=== PATIENT | female | born 1965 | race Caucasian/White ===

== ENCOUNTER 2019-01-15 09:40 | Inpatient (IN) | payer OTHER ==
[~2019-01-15] VITALS: Ht 152.4 cm; Wt 66.2 kg
[~2019-01-15 09:40] MED LIST: CLONIDINE HCL0.2 M2 PO; DIOVAN 80 MG TA80 M1 PO; HORMONES; LAMICTAL100 MG PO; LEVAQUIN 250 M250 MG PO; MOBIC7.5 MG PO; NEURONTIN600 MG PO; NORCO 5-325 TA1 EACH PO; PERCOCET 7.5-31 EACH PO; PREMPHASE 0.621 EAC1 PO; PREVACID 30MG C30 M1 PO; PROTONIX40 MG PO; PROZAC10 M1 PO; PROZAC10 MG PO; PROZAC40 MG PO; SANCTURA; SYNTHROID137 MCG PO; XANAX 0.5 MG0.5 M1 PO; ZEBUTAL; ZOFRAN ODT4 MG DISSOLVE; ZOFRAN ODT4 MG SUBLING
[2019-01-15 09:48] VITALS: BP 137/81
[2019-01-15] MEDS ORDERED: SYNTHROID100 MC1 PO (09:51)
[2019-01-15] MEDS ORDERED: ACCUNEB SO1.25 MG/1 INH (09:51)
[2019-01-15 10:14] LABS: HEMATOCRIT 44.3 % (37.0-47.0); HEMOGLOBIN 15.2 gm/dL (12.0-15.0); MCH 30.5 pg (26.0-34.0); MCHC 34.3 g/dL (28.0-37.0); MPV 7.4 fl. (7.2-11.1); RBC 4.97 mil/uL (4.20-5.00); RDW-CV 13.3 % (10.5-14.5); WBC 8.2 thou/uL (4.0-11.0)
[2019-01-15 10:25] LABS: ANION GAP 21 mmol/L (7-16); BUN 23 mg/dL (7-18); CALCIUM 8.7 mg/dL (8.5-10.1); CHLORIDE 99 mmol/L (98-107); CO2 21 mmol/L (21-32); CREATININE 0.9 mg/dL (0.6-1.3); GLUCOSE 83 mg/dL (70-99); POTASSIUM 3.7 mmol/L (3.5-5.1); SODIUM 141 mmol/L (136-145)
[2019-01-15 10:34] LABS: ALBUMIN 4.4 g/dL (3.4-5.0); ALKALINE PHOSPHATASE 82 U/L (46-116); LIPASE 131 U/L (73-393); MAGNESIUM 1.6 mg/dL (1.8-2.4); SGOT 41 U/L (15-37); SGPT 27 U/L (30-65); TROPONIN-I LEVEL <0.06 ng/mL (<0.06)
--- NOTE | 2019-01-15 14:45 | NUR ---
PT SITTING UP IN BED, GIVEN TURKEY SANDWICH AND SODA PER REQUEST.
[2019-01-15 15:06] VITALS: BP 120/78
[2019-01-15 15:44] VITALS: BP 117/69
--- NOTE | 2019-01-15 16:11 | EKG ---
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 : 1965 Requested By: Chris Bronson Order Number: [id number] MD: Sanju Hargrove Measurements Intervals [place] Rate: 93 P: 66 NE: 139 QRS: 13 QRSD: 106 T: 42 QT: 437 QTc: 544 Interpretive Statements Sinus rhythm Probable left atrial enlargement Prolonged QT interval Compared to ECG 07/30/2017 07:54:49 Prolonged QT interval now present Electronically Signed On 01-15-2019 16:11:01 CDT by Sanju Hargrove [email or web address] <ELECTRONICALLY SIGNED> By: Sanju Hargrove MD, [facility] 01/15/19 1611 1010 1010 Sanju Hargrove MD, [facility] /EPI
--- NOTE | 2019-01-15 16:14 | EKG ---
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
[2019-01-15 17:32] LABS: ABSOLUTE LYMPHOCYTES 1.2 thou/uL (0.8-5.3); ABSOLUTE MONOCYTES 0.7 thou/uL (0.0-1.2); ABSOLUTE NEUTROPHILS 4.8 thou/uL (1.6-8.1); BASOPHILS 0.7 %; EOSINOPHILS 0.2 %; HEMATOCRIT 38.5 % (37.0-47.0); LYMPHOCYTES 18.3 %; MCH 30.4 pg (26.0-34.0); MCHC 34.3 g/dL (28.0-37.0); MCV 88.6 fL (80.0-100.0); MONOCYTES 9.8 %; MPV 7.3 fl. (7.2-11.1); NUCLEATED RBCS 0 /100WBC; PLATELET COUNT* 315 thou/uL (150-400); RBC 4.34 mil/uL (4.20-5.00); RDW-CV 13.4 % (10.5-14.5); WBC 6.7 thou/uL (4.0-11.0)
[2019-01-15 17:33] LABS: HEMOGLOBIN 13.2 gm/dL (12.0-15.0)
[2019-01-15 17:41] LABS: INR 1.1; PROTIME 11.1 Seconds (9.20-11.50)
[2019-01-15 17:47] LABS: ALBUMIN 3.5 g/dL (3.4-5.0); CALCIUM 7.8 mg/dL (8.5-10.1); CREATININE 1.1 mg/dL (0.6-1.3); MAGNESIUM 1.7 mg/dL (1.8-2.4); PHOSPHORUS* 2.4 mg/dL (2.5-4.9); POTASSIUM 3.9 mmol/L (3.5-5.1); TOTAL PROTEIN 6.6 g/dL (6.4-8.2)
--- NOTE | 2019-01-15 18:42 | NUR ---
PT ADMITTED ON TELE THIS AFTERNOON AT 1530 REPORT RECEIVED FROM ER NURSE. 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 ON RA . NO PAIN. COMPLAINS OF NAUSEA AND ANXIETY. ATIVAN GIVEN ORDERED. ZOFRAN NOT GIVEN , AWAITING DR'S ORDER. FALL PRECAUTION IN PLACE. SEIZURE PRECAUTION IN PLACE. CIWA 16. ATIVCAN ON OCT GIVEN ONCE NEEDED. PT ATE SANDWICH. DIET ORDERED ON [employer]. MAGNESIUM WAS REPLACED IN ER BUT AWAITNG FOR ELECTROLYTE ORDERS. UA COLLECTION PENDING. IV FLUID D5 NS INFUSING AT 100 PER HOUR. WILL CONTINUE TO MONITOR PT
[2019-01-15] MEDS ORDERED: BREO ELLIPTA 21 EACH INH (19:06)
[2019-01-15] MEDS ORDERED: SPIRIVA INH (19:07)
[2019-01-15] MEDS ORDERED: LAMICTAL XR200 MG PO (19:07)
[2019-01-15] MEDS ORDERED: PROZAC20 MG PO (19:07)
[2019-01-15] MEDS ORDERED: PROVERA2.5 MG PO (19:08)
[2019-01-15] MEDS ORDERED: SYNTHROID125 MC1 PO (19:08)
[2019-01-15 20:00] VITALS: BP 140/86
[2019-01-15 22:34] LABS: URINE BILIRUBIN NEGATIVE (Negative); URINE BLOOD 1+ (Negative); URINE CLARITY CLEAR; URINE COLOR YELLOW; URINE GLUCOSE-RANDOM NEGATIVE (Negative); URINE KETONES TRACE (Negative); URINE LEUKOCYTES-REFLEX NEGATIVE (Negative); URINE NITRITE-REFLEX NEGATIVE (Negative); URINE PROTEIN NEGATIVE (Negative); URINE SPECIFIC GRAVITY 1.015 (1.005-1.030); URINE UROBILINOGEN 0.2 E.U./dl (0.2-1.0)
[2019-01-15 22:47] LABS: MUCUS None Seen strn/LPF (None Seen); SQUAMOUS 4-10 Moderate /LPF (0-3)
[2019-01-15 22:48] LABS: BACTERIA-REFLEX None Seen /HPF (None Seen); CASTS None Seen /LPF (None Seen); CRYSTALS None Seen /LPF (None Seen); URINE RBC 0-2 Rare /HPF (0-2); URINE WBC-REFLEX None Seen /HPF (0-5)
[2019-01-15 22:50] LABS: AMP/METHAMP Negative (Negative); BARBITURATES Negative (Negative); BENZODIAZEPINES Negative (Negative); COCAINE Negative (Negative); METHADONE Negative (Negative); OPIATES Negative (Negative); PCP Negative (Negative); THC Negative (Negative)
[2019-01-16] VITALS: BP 123/77
[2019-01-16 04:00] VITALS: BP 127/82
--- NOTE | 2019-01-16 05:31 | NUR ---
ASSUMED PT CARE AT APPROX 1930. PT IS AWAKE AND ORIENTED X4. VSS ON ROOM AIR. 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 PT APPEARED ANXIOUS AND RESTLESS. ATIVAN GIVEN PER MAR. REASSESSMENT DONE CHARTED. SEE CIWA SCORES CHARTED. PT WAS ABLE TO SLEEP INTERMITTENTLY DURING THE NIGHT BUT APPEARED TO BE CALMER. NEEDS ATTENDED. CALL LIGHT WITHIN REACH. SEIZURE AND FALL PRECAUTIONS IN PLACE. HOULRY ROUNDING DONE FOR PT SAFETY.
[2019-01-16 07:58] LABS: CALCIUM 8.3 mg/dL (8.5-10.1); CREATININE 0.9 mg/dL (0.6-1.3); MAGNESIUM 1.7 mg/dL (1.8-2.4); POTASSIUM 3.8 mmol/L (3.5-5.1)
[2019-01-16 08:00] VITALS: BP 133/91
--- NOTE | 2019-01-16 11:37 | NUR ---
PATIENT IS ALERT, ORIENTED, AND SOMEWHAT ANXIOUS THIS AM. SHE DENIES PAIN. CWIA SCORE 12 THIS AM. TELE SHOWS SR WITH PROLONGED QT. MAGNESIUM REPLACEMENT GIVEN THIS AM. NO SEIZURE ACTIVITY NOTED. WILL CONTINUE TO MONITOR.
[2019-01-16 12:19] VITALS: BP 134/90
--- NOTE | 2019-01-16 13:10 | 2DMMODE ---
[place] [address] 2 D/M-MODE ECHOCARDIOGRAM Name: CANDY MILAN Room: [address] IN [facility]#: [id number] Admission: 01/15/19 Attend Phys: Nando Chen Discharge: Date of : 63 Date of Service: 01/16/19 1310 Report #: [id number] THIS REPORT FOR: //name// APPROVED REPORT Study performed: 01/15/2019 20:11:55 EXAM: Comprehensive 2D, Doppler, and color-flow Echocardiogram Patient Location: In-Patient Room #: [facility] [place] [facility] [place] Status: routine BSA: 1.59 HR: 86 bpm BP: 117/69 mmHg Rhythm: NSR Other Information Study Quality: Good Indications Abnormal ECG 2D Dimensions IVSd: 10.04 (7-11mm) LVOT Diam: 22.92 (18-24mm) LVDd: 46.92 mm PWd: 10.13 (7-11mm) Ascending Ao: 32.02 (22-36mm) LVDs: 35.07 (25-40mm) Aortic Root: 33.02 mm Volumes Left Atrial Volume (Systole) LA ESV Index: 19.30 mL/m2 Aortic Valve AoV Peak Ritchie.: 1.05 m/s AO Peak Gr.: 4.39 mmHg LVOT Max P.70 mmHg AO Mean Gr.: 2.28 mmHg LVOT Mean P.44 mmHg LVOT Max V: 0.82 m/s AO V2 VTI: 19.03 cm LVOT Mean V: 0.56 m/s NATY (VTI): 4.00 cm2 LVOT V1 VTI: 18.44 cm Mitral Valve E/A Ratio: 0.82 MV Decel. Time: 243.33 ms MV E Max Ritchie.: 0.74 m/[place] [address] 2 D/M-MODE ECHOCARDIOGRAM Name: CANDY MILAN Room: [address] IN [facility]#: [id number] Admission: 01/15/19 Attend Phys: Nando Chen Discharge: Date of : 63 Date of Service: 01/16/19 1310 Report #: [id number] MV PHT: 70.57 ms MVA (PHT): 3.12 cm2 TDI E/Lateral E': 6.73 E/Medial E': 7.40 Medial E' Ritchie.: 0.10 m/s Lateral E' Ritchie.: 0.11 m/s Pulmonary Valve PV Peak Ritchie.: 0.79 m/s PV Peak Gr.: 2.51 mmHg Tricuspid Valve RAP Estimate: 5.00 mmHg TR Peak Gr.: 19.79 mmHg RVSP: 24.00 mmHg PA Pressure: 24.00 mmHg Left Ventricle The left ventricle is normal size. There is normal LV segmental wall motion. There is normal left ventricular wall thickness. Left ventricular systolic function is normal. The left ventricular ejection fraction is within the normal range. LVEF is 50-55%. Grade I - abnormal relaxation pattern. Right Ventricle The right ventricle is normal size. The right ventricular systolic function is normal. Atria The left atrium size is normal. The right atrium size is normal. Aortic Valve The aortic valve is normal in structure. No aortic regurgitation is present. There is no aortic valvular stenosis. Mitral Valve The mitral valve is normal in structure. Trace mitral regurgitation. No evidence of mitral valve stenosis. Tricuspid Valve The tricuspid valve is normal in structure. Trace tricuspid regurgitation. No pulmonary hypertension. Pulmonic Valve The pulmonary valve is normal in structure. There is no pulmonic [place] [address] 2 D/M-MODE ECHOCARDIOGRAM Name: CANDY MILAN Room: [address]#: [id number] Admission: 01/15/19 Attend Phys: Nando Chen Discharge: Date of : 63 Date of Service: 01/16/19 1310 Report #: [id number] Great Vessels The aortic root is normal in size. IVC is normal in size and collapses >50% with inspiration. Pericardium There is no pericardial effusion. <Conclusion> LVEF is 50-55%. There is normal LV segmental wall motion. Grade I - abnormal relaxation pattern. There is no aortic valvular stenosis. No aortic regurgitation is present. Trace mitral regurgitation. Trace tricuspid regurgitation. No pulmonary hypertension. <ELECTRONICALLY SIGNED> By: Ace Guzman MD, FACC 01/16/19 1310 1310 1310 Ace Guzman MD, FACC /INF
[2019-01-16 13:16] VITALS: BP 134/90
[2019-01-16] MEDS ORDERED: PRENATAL FORMU1 EAC1 PO (13:37)
--- NOTE | 2019-01-27 13:13 | CON ---
[address] [address] CONSULTATION Name: CANDY MILAN Room: [address]#: [id number] Admission: 01/15/19 Attend Phys: Rayne Glynn Discharge: 01/16/19 Date of : 63 Report #: [id number] THIS REPORT FOR: //name// CC: MANAN physician/PCP Nando Chen DATE OF SERVICE: 01/16/2019 REASON FOR CONSULTATION: Abnormal QT interval. HISTORY OF PRESENT ILLNESS: The patient is a 53-year-old female who presented inebriated with nausea and vomiting to the Emergency Department. Apparently, her workup included an EKG and her QTC was 511 milliseconds. The measured QT is only 400 milliseconds. She is on anti-seizure medications. She presents with a sinus rhythm and overnight her telemetry has been normal. She reports no palpitations, syncope or presyncope. She does have a history of seizure disorder, but apparently this was diagnosed with neurologic testing and not based on clinical findings alone and she has had a complete cardiac workup for pulmonary transplant within the last 2 years at [facility]. PAST MEDICAL HISTORY: She has a history of chronic bronchiectasis and severe lung disease. She is a nonsmoker. She has history of hypothyroidism and hypertension. HOME MEDICATIONS: Include Breo, Spiriva, Prozac, lamotrigine 200 mg daily, estradiol, Synthroid 0.125 mg daily, valsartan 400 mg daily, medroxyprogesterone 2.5 mg daily. SOCIAL HISTORY: As noted above, she is a nonsmoker. FAMILY HISTORY: She does not know of any cardiac rhythm disorders that cause sudden in direct family members. There is no history of early onset of coronary artery disease. PHYSICAL EXAMINATION: VITAL SIGNS: On presentation, blood pressure is 137/81 with a pulse rate of 98, respiratory rate 16 this morning, her pulse is 86 in a sinus rhythm with a blood pressure 133/90. GENERAL: This is a thin, middle-aged woman. She is alert, no apparent distress. HEENT: Eyes are intact. No facial asymmetry. NECK: Supple. No jugular venous distention. I cannot hear a murmur or S3. LUNGS: Clear to auscultation. There is somewhat [place] [address] CONSULTATION Name: CANDY MILAN Room: [address]#: [id number] Admission: 01/15/19 Attend Phys: Rayne Glynn Discharge: 01/16/19 Date of : 63 Report #: [id number] in the upper lung bianchi. NEUROLOGIC: There are no deficits. LABORATORY DATA: Electrocardiogram shows a sinus rhythm with a heart rate of 98 and a NE interval 144 milliseconds, QRS duration is 92. Measured QT is 400 milliseconds, QTC is 511 milliseconds. Telemetry overnight shows sinus rhythm with no tachycardia. Hemoglobin is 13.2, white blood cell count is 6.7, platelet count is 315,000. Imaging of the chest shows no recent testing. LABORATORY DATA: Sodium is 139, potassium is 3.8, chloride 104, BUN is 12, creatinine is 0.9, calcium was 8.3, glucose 101. Magnesium was 1.7. Troponin I is 0.06 x 2 sets. IMPRESSION: 1. Prolonged QT interval. I suspect this is probably secondary to her current drugs. This should be reviewed with both her neurologist and primary care physician possibly the lamotrigine and has not had any evidence of arrhythmogenic effect. 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 2. Hypertension. This is stable. 3. Seizure disorder. Seemingly, this is a true seizure disorder and not dysrhythmia and I would recommend following up with her usual neurologist. 4. Chronic bronchiectasis. She is followed by the tar man at [facility] closely. <ELECTRONICALLY SIGNED> By: Ace Guzman MD, FACC 01/27/19 1313 1115 [id number] Guzman MD, FACC /nt
== END 2019-01-16 14:31 | disposition home or self-care (01) | DRG 101 ==
LOC: M.ERS 09:40 → M.TBA-ER 13:47 → M.2W 13:47
PROVIDERS: Emergency Medicine Emergency Medical Services; ADMIT Internal Medicine
DX: G40.909 Epilepsy, unspecified, not intractable, without status epilepticus (principal); F10.239 Alcohol dependence with withdrawal, unspecified; I45.81 Long QT syndrome; E83.42 Hypomagnesemia; R11.2 Nausea with vomiting, unspecified; E03.9 Hypothyroidism, unspecified; I10 Essential (primary) hypertension; J47.9 Bronchiectasis, uncomplicated

== ENCOUNTER 2019-04-28 10:38 | Emergency (ER) | payer OTHER ==
[~2019-04-28] VITALS: Ht 157.5 cm; Wt 65.8 kg
[~2019-04-28 10:38] MED LIST changes: +ACCUNEB SO1.25 MG/1 INH; +BREO ELLIPTA 21 EACH INH; +LAMICTAL XR200 MG PO; +PRENATAL FORMU1 EAC1 PO; +PROVERA2.5 MG PO; +PROZAC20 MG PO; +SPIRIVA INH; +SYNTHROID100 MC1 PO; +SYNTHROID125 MC1 PO
[2019-04-28 11:27] LABS: ABSOLUTE BASOPHILS 0.1 thou/uL (0.0-0.2); ABSOLUTE MONOCYTES 0.2 thou/uL (0.0-1.2); ABSOLUTE NEUTROPHILS 5.7 thou/uL (1.6-8.1); BASOPHILS 0.8 %; EOSINOPHILS 0.2 %; HEMATOCRIT 42.5 % (37.0-47.0); HEMOGLOBIN 14.5 gm/dL (12.0-15.0); MCH 30.5 pg (26.0-34.0); MCHC 34.1 g/dL (28.0-37.0); MCV 89.5 fL (80.0-100.0); MONOCYTES 3.1 %; MPV 7.2 fl. (7.2-11.1); NUCLEATED RBCS 0 /100WBC; PLATELET COUNT* 384 thou/uL (150-400); POLYS 81.9 %; RBC 4.74 mil/uL (4.20-5.00); RDW-CV 12.8 % (10.5-14.5); WBC 6.9 thou/uL (4.0-11.0)
[2019-04-28 11:34] LABS: CALCIUM 8.6 mg/dL (8.5-10.1); POTASSIUM 3.8 mmol/L (3.5-5.1)
[2019-04-28 11:39] LABS: ALBUMIN 4.1 g/dL (3.4-5.0); TOTAL BILIRUBIN 0.4 mg/dL (<0.1-1.0); TOTAL PROTEIN 7.5 g/dL (6.4-8.2)
[2019-04-28] MEDS ORDERED: ZOFRAN ODT4 MG SUBLING (12:08)
[2019-04-28 12:22] VITALS: BP 127/79
[2019-04-28 12:26] LABS: URINE BILIRUBIN NEGATIVE (Negative); URINE BLOOD 2+ (Negative); URINE CLARITY CLEAR; URINE COLOR YELLOW; URINE GLUCOSE-RANDOM NEGATIVE (Negative); URINE KETONES TRACE (Negative); URINE LEUKOCYTES-REFLEX NEGATIVE (Negative); URINE NITRITE-REFLEX NEGATIVE (Negative); URINE PROTEIN TRACE (Negative); URINE UROBILINOGEN 0.2 E.U./dl (0.2-1.0)
[2019-04-28 12:33] LABS: BACTERIA-REFLEX 1-9 Few /HPF (None Seen); CASTS None Seen /LPF (None Seen); CRYSTALS None Seen /LPF (None Seen); MUCUS None Seen strn/LPF (None Seen); SQUAMOUS 4-10 Moderate /LPF (0-3); URINE WBC-REFLEX 0-5 Rare /HPF (0-5)
--- NOTE | 2019-04-29 17:58 | EKG ---
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
== END 2019-04-28 12:23 | disposition home or self-care (01) ==
LOC: M.ERS 10:38
PROVIDERS: Physician Assistant
DX: F41.9 Anxiety disorder, unspecified (principal); R11.2 Nausea with vomiting, unspecified; Z90.89 Acquired absence of other organs; Z90.721 Acquired absence of ovaries, unilateral